=== PATIENT | male | born 1960 | race Caucasian/White ===

== ENCOUNTER → 2019-01-19 | Outpatient (CLI) | payer MEDICARE, OTHER ==
[~2019-01-19] MED LIST: FLOMAX; GABAPENTIN; HYDROCODONE; HYZAAR; ZOLPIDEM
--- NOTE | 2019-01-19 11:28 | Diagnostic Imaging Report ---
Renal ultrasound, 01/19/2019. History: Chronic kidney disease. Comparison: 01/10/2013. Discussion: Transverse and longitudinal images of the kidneys were obtained demonstrating normal renal sizes and echogenicities. There is mild left hydronephrosis, decreased compared to prior exam. No hydronephrosis is seen on the right. There is no evidence of mass or renal calculus. The right kidney measures 11.7 cm and the left kidney measures 10.7 cm in length. Renal cortex measures 1.9 and 1.5 cm respectively. The urinary bladder is unremarkable. Only the left ureteral jet was identified. Prevoid volume 24 mL. Prostate volume measures 40.9 mL. There is no evidence of free fluid. IMPRESSION: Mild left hydronephrosis, decreased compared to prior exam. Otherwise unremarkable renal ultrasound. Signed by: Kamran Nelson on 01/19/2019 11:25 AM
--- NOTE | 2019-01-19 11:29 | Diagnostic Imaging Report ---
Abdomen, 1 view. History: Chronic kidney disease, right flank pain. Findings: Air is scattered throughout nondilated small and large bowel. There are no masses or abnormal calcifications. Cholecystectomy clips are present in the right upper quadrant. The osseous structures are intact. IMPRESSION: Non-specific bowel gas pattern. Signed by: Kamran Nelson on 01/19/2019 11:25 AM
== END ==
LOC: US 10:08
PROVIDERS: ATTEND Urology
DX: N18.9 Chronic kidney disease, unspecified (principal)
CPT/HCPCS: 74018; 76770

== ENCOUNTER → 2019-02-03 | Outpatient (CLI) | payer MEDICARE, OTHER ==
--- NOTE | 2019-02-03 12:35 | Diagnostic Imaging Report ---
CT of the abdomen and pelvis, without contrast, 02/03/2019. History: Right-sided abdominal pain. Comparison: Renal ultrasound 01/19/2019. Technique: Multidetector CT scanning of the abdomen and pelvis was performed from the level of the lung bases to the inferior pubic rami without intravenous or oral contrast. Coronal and sagittal multiplanar reformations were obtained. RADIATION DOSE: Total DLP: 477 mGy*cm Dose modulation, iterative reconstruction, and/or weight based adjustment of the mA/kV was utilized to reduce the radiation dose to as low as reasonably achievable. Discussion: Examination is limited without contrast. Lung bases: No visualized abnormalities. Abdomen: 2 punctate calcifications are seen along the anterior edge of the right kidney, but not within the kidney. There is no evidence of hydronephrosis or perinephric fat stranding on the right. There is mild dilatation of the left calyces and renal pelvis without visible stone. The left ureter is not dilated. The liver, biliary tree, spleen, pancreas, and adrenal glands are unremarkable. Cholecystectomy clips are present. The abdominal aorta is within normal limits. There is no bowel dilatation. The appendix is not visible but there is no evidence of inflammation in the right lower quadrant. Multiple diverticuli are present within the distal descending and sigmoid colon without evidence of adjacent inflammation. There is no evidence of adenopathy or free fluid. Pelvis: The bladder, prostate, and seminal vesicles are unremarkable. There is no evidence of free fluid or adenopathy. Bones and soft tissues: Degenerative changes are present throughout the lumbar spine without evidence of lytic or sclerotic lesion. IMPRESSION: 1. Mild left hydronephrosis without evidence of obstructing stone. No renal calculi or hydronephrosis on the right. 2. Colonic diverticulosis without evidence of diverticulitis. 3. Status post cholecystectomy. Otherwise unremarkable noncontrast exam. Signed by: Kamran Nelson on 02/03/2019 12:31 PM
== END ==
LOC: CT 11:38
PROVIDERS: ATTEND Urology
DX: N13.30 Unspecified hydronephrosis (principal)
CPT/HCPCS: 74176

== ENCOUNTER → 2019-02-21 | Outpatient (CLI) | payer MEDICARE, OTHER ==
--- NOTE | 2019-02-21 20:33 | Diagnostic Imaging Report ---
Renal Scan with Lasix Washout Clinical information: CKD; renal colic; right flank pain x 1 month Technique: Following intravenous administration of 10 mCi of Tc-99m MAG3, dynamic images of the kidneys in the posterior projection were obtained through 40 minutes. Lasix 40 mg was administered intravenously at 10 minutes post injection of the tracer. Report: Left kidney: Perfusion of the left kidney is prompt. The kidney has a reniform shape with mild thinning of the renal cortex. The kidney is overall decreased in size.. Extraction of tracer from the blood pool is minimally decreased. Clearance of tracer from the renal parenchyma is mildly prolonged. The pelvicalyceal system is not dilated although a single prominent mitzi is seen in the upper pole. Increased pooling of tracer is seen within the upper pole mitzi only. Some drainage of tracer from the pelvicalyceal system is seen prior to administration of Lasix. Washout of tracer from the pelvicalyceal system following administration of Lasix is rapid with a T-1/2 of 10 minutes (normal less than 15 minutes). No significant stasis of tracer is seen within the left ureter. Right kidney: Perfusion to the right kidney is prompt. The right kidney has a reniform shape without thinning of the renal cortex. The kidney is overall reduced in size and is smaller than the left kidney. Extraction of tracer by the renal parenchyma is mildly decreased. Clearance of tracer from the renal parenchyma is mildly prolonged. The pelvicalyceal system is not dilated. Physiologic pooling of tracer is seen within the pelvicalyceal system. Drainage of tracer from the pelvicalyceal system is prompt and adequate prior to administration of Lasix. No significant stasis of tracer is seen within the right ureter. Differential renal function: The left kidney contributes 60% of total renal function and the right kidney contributes 40% (normal 43-57%). Impression: 1. Mild medical renal disease is present in the left kidney. A single prominent calyx is seen in the upper pole. No hydronephrosis is present. No physiologically significant obstruction of the renal collecting system is present. 2. Mild medical renal disease present in the right kidney. The right kidney is smaller than the left kidney and this accounts for the mildly decreased differential function of 40%.. No hydronephrosis is present. No physiologically significant obstruction of the renal collecting system is present. Signed by: Dr. Silvina Redding M.D. on 02/21/2019 8:29 PM
== END ==
LOC: NM 13:42
PROVIDERS: ATTEND Urology
DX: N18.9 Chronic kidney disease, unspecified (principal); N23 Unspecified renal colic
CPT/HCPCS: 78708; A9562

== ENCOUNTER → 2020-02-21 | Outpatient (CLI) | payer MEDICARE, OTHER ==
[~2020-02-21] MED LIST changes: +FUROSEMIDE INJ 10 MG/ML 4 ML VIAL ONE
--- NOTE | 2020-02-21 17:26 | Diagnostic Imaging Report ---
Renal Scan with Lasix Washout Clinical information: Unspecified hydronephrosis. CKD. Comparison: Prior renal scan with Lasix washout 02/21/2019 Technique: Following intravenous administration of 10 mCi of Tc-99m MAG3, dynamic images of the kidneys in the posterior projection were obtained through 40 minutes. Lasix 40 mg was administered intravenously at 10 minutes post injection of the tracer. Report: Left kidney: Perfusion of the left kidney is prompt. The kidney has a reniform shape with mild thinning of the renal cortex. The kidney is overall decreased in size. Extraction of tracer from the blood pool by the renal parenchyma is minimally decreased. Clearance of tracer from the renal parenchyma is mildly prolonged. The pelvicalyceal system is not dilated although a single prominent calyx is seen in the upper pole. Increased pooling of tracer is seen within the upper pole calyx only. Some drainage of tracer from the pelvicalyceal system is seen prior to administration of Lasix. Washout of tracer from the pelvicalyceal system following administration of Lasix is rapid with a T-1/2 of 10 minutes (normal less than 15 minutes). No significant stasis of tracer is seen within the left ureter. Right kidney: Perfusion to the right kidney is prompt. The right kidney has a reniform shape without thinning of the renal cortex. The kidney is overall reduced in size and is smaller than the left kidney. Extraction of tracer from the blood pool by the renal parenchyma is mildly decreased. Clearance of tracer from the renal parenchyma is mildly prolonged. The pelvicalyceal system is not dilated. Physiologic pooling of tracer is seen within the pelvicalyceal system. Drainage of tracer from the pelvicalyceal system is prompt and adequate prior to administration of Lasix. No significant stasis of tracer is seen within the right ureter. Differential renal function: The left kidney contributes 55% of total renal function and the right kidney contributes 45% (normal 43-57%), previously left 60% and right 40%. Impression: 1. Mild medical renal disease is present in the left kidney. A single prominent calyx is seen in the upper pole. No hydronephrosis is present. No physiologically significant obstruction of the renal collecting system is present. The appearance of the kidney is unchanged compared to the prior renal scan of 02/21/2019 and the washout pattern is unchanged. The differential renal function is not statistically different (within 5 absolute percentage points)compared to the prior study. 2. Mild medical renal disease present in the right kidney. The right kidney is smaller than the left kidney and this accounts for the differential function of 45%. No hydronephrosis is present. No physiologically significant obstruction of the renal collecting system is present. The appearance of the kidney is unchanged compared to the prior renal scan of 02/21/2019 and the washout pattern is unchanged. The differential renal function is not statistically different (within 5 absolute percentage points)compared to the prior study. Signed by: Dr. Silvina Redding M.D. on 02/21/2020 5:23 PM
== END ==
LOC: NM 10:25
PROVIDERS: ATTEND Urology
DX: N13.30 Unspecified hydronephrosis (principal)
CPT/HCPCS: 78708; A9562; J1940

== ENCOUNTER → 2022-04-07 | Day surgery (SDC) | payer MEDICARE ==
[~2022-04-07] MED LIST changes: +AMBIEN10 MG PO; +BUPIVACAINE HCL 0.5% INJ 30 ML VIAL INJ ONE; +COMPLEX B-1001 EACH PO; +DEXAMETHASONE SOD PHOS INJ 4 MG/ML SDV ONE; +FENTANYL CITRATE/PF 100MCG/2 ML INJ ONE; +FLOMAX0.4 MG PO; -FUROSEMIDE INJ 10 MG/ML 4 ML VIAL ONE; +IBUPROFEN200 MG PO; +LIDOCAINE HCL 2% LOCAL INJ 5 ML SDV VIAL INJ ONE; +LORTAB 10 MG-3473 ML PO; +LOSARTAN POTAS100 MG PO; +LYRICA75 MG PO; +MIDAZOLAM HCL 2 MG/2 ML VIAL ONE; +NEOSTIGMINE 1 MG/ML 10ML VIAL ONE; +ONDANSETRON HCL INJ 2MG/ML 2ML 2 MG/ML VIAL ONE; +POVIDONE IODINE 0.05% 0.05 % ML PO ONE; +PROPOFOL IV EMULSION 10 MG/ML 20 ML VIAL ONE; +PROTONIX20 MG PO; +SERTRALINE HCL50 MG PO; +SEVOFLURANE INHAL SOLN 250 ML PEN BTL ONE; +TESTOSTERONE INJ; +VITAMIN B COMP1 EAC1 PO; +VITAMIN B-122000 MCG PO
[2022-04-07 13:55] VITALS: BP 118/74
== END | disposition home or self-care (01) ==
LOC: OR 10:14
PROVIDERS: ATTEND Podiatrist Foot & Ankle Surgery
DX: M20.22 Hallux rigidus, left foot (principal); M71.572 Other bursitis, not elsewhere classified, left ankle and foot; M1A.9XX1 Chronic gout, unspecified, with tophus (tophi); G47.33 Obstructive sleep apnea (adult) (pediatric); I10 Essential (primary) hypertension
CPT/HCPCS: 28002; 28306; 76000; 88304; C1713 ×2; J0690; J1100; J2001; J2250; J2405; J2704; J2710; J3010; Q4150

== ENCOUNTER → 2022-09-16 | Outpatient (CLI) | payer MEDICARE ==
[~2022-09-16] MED LIST changes: -BUPIVACAINE HCL 0.5% INJ 30 ML VIAL INJ ONE; -DEXAMETHASONE SOD PHOS INJ 4 MG/ML SDV ONE; -FENTANYL CITRATE/PF 100MCG/2 ML INJ ONE; -LIDOCAINE HCL 2% LOCAL INJ 5 ML SDV VIAL INJ ONE; -MIDAZOLAM HCL 2 MG/2 ML VIAL ONE; -NEOSTIGMINE 1 MG/ML 10ML VIAL ONE; -ONDANSETRON HCL INJ 2MG/ML 2ML 2 MG/ML VIAL ONE; -POVIDONE IODINE 0.05% 0.05 % ML PO ONE; -PROPOFOL IV EMULSION 10 MG/ML 20 ML VIAL ONE; -SEVOFLURANE INHAL SOLN 250 ML PEN BTL ONE
== END ==
LOC: US 10:43
PROVIDERS: ATTEND Urology
DX: Z09 Encounter for follow-up examination after completed treatment for conditions other than malignant neoplasm (principal); N13.30 Unspecified hydronephrosis
CPT/HCPCS: 76770